=== PATIENT | male | born 1955 | race Caucasian/White ===

== ENCOUNTER 2018-04-10 17:57 | Emergency (ER) | payer MEDICARE, MEDICAID ==
[~2018-04-10] VITALS: Ht 170.2 cm; Wt 95.3 kg
[2018-04-10 18:05] VITALS: BP 146/79
[2018-04-10] MEDS ORDERED: TDAP [DIPH/PERTUSSIS/TET] 0.5 ML VIAL IM ONE (18:35)
[2018-04-10] MEDS ORDERED: IBUPROFEN 600 MG TABLET PO ONE (18:35)
[2018-04-10] MEDS: TDAP [DIPH/PERTUSSIS/TET] 0.5 ML VIAL IM ONE (18:41)
[2018-04-10] MEDS: IBUPROFEN 600 MG TABLET PO ONE (18:41)
== END 2018-04-10 18:58 | disposition home or self-care (01) ==
LOC: ER 17:58
DX: S50.01XA Contusion of right elbow, initial encounter (principal); S40.011A Contusion of right shoulder, initial encounter; S70.01XA Contusion of right hip, initial encounter; S70.12XA Contusion of left thigh, initial encounter; E03.9 Hypothyroidism, unspecified; I10 Essential (primary) hypertension; W01.0XXA Fall on same level from slipping, tripping and stumbling without subsequent striking against object, initial encounter; Y93.55 Activity, bike riding; Y92.89 Other specified places as the place of occurrence of the external cause; Y99.8 Other external cause status
CPT/HCPCS: 73080-TC; 90715; A4606; Z7610